=== PATIENT | female | born 1960 | race Caucasian/White ===

== ENCOUNTER 2021-05-11 02:18 | Inpatient (IN) | payer OTHER ==
[~2021-05-11] VITALS: Ht 167.6 cm; Wt 107.0 kg
[2021-05-11] MEDS ORDERED: IPRAT-ALBUT 0.5-3 ML INH (05:43)
[2021-05-11] MEDS ORDERED: AMILORIDE HCL5 MG PO (05:44)
[2021-05-11] MEDS ORDERED: PRAVASTATIN SOD40 MG PO (05:44)
[2021-05-11] MEDS ORDERED: EUTHYROX100 MCG PO (05:45)
[2021-05-11] MEDS ORDERED: ESCITALOPRAM OX20 MG PO (05:46)
[2021-05-11] MEDS ORDERED: MONTELUKAST SOD10 MG PO (05:46)
[2021-05-11] MEDS ORDERED: COQ-1030 MG PO (05:48)
[2021-05-11] MEDS ORDERED: ASPIRIN EC81 MG PO (05:48)
[2021-05-11] MEDS ORDERED: VITAMIN D PO (05:49)
[2021-05-11] MEDS ORDERED: VITAMIN C1000 MG PO (05:49)
[2021-05-11] MEDS ORDERED: OSTEO BI-FLEX1 EAC1 PO (05:50)
[2021-05-11 12:17] LABS: BUN/CREATININE RATIO 26 (0-10)
[2021-05-11 12:18] LABS: HEMOGLOBIN 13.7 gm/dl (12.3-15.3); RED BLOOD COUNT 4.45 M/UL (4.00-5.10); WHITE BLOOD COUNT 16.1 K/UL (4.5-11.0)
[2021-05-13 04:31] LABS: WHITE BLOOD COUNT 15.8 K/UL (4.5-11.0)
[2021-05-13 04:32] LABS: RED BLOOD COUNT 2.96 M/UL (4.00-5.10)
--- NOTE | 2021-05-13 13:34 | NUR ---
MULTIPLE ATTEMPTS MADE TO GAIN AC ACCESS OF #20 OR LARGER BY 3 DIFFERENT PCU NURSES. PT PRESENTLY HAS #[address] CT STAFF AWARE
[2021-05-14 03:21] LABS: HEMOGLOBIN 7.5 gm/dl (12.3-15.3)
[2021-05-14 03:23] LABS: RED BLOOD COUNT 2.46 M/UL (4.00-5.10)
[2021-05-14 11:54] LABS: HEMOGLOBIN 6.7 gm/dl (12.3-15.3)
--- NOTE | 2021-05-14 12:44 | NUR ---
PT HGB OF 6.7 REPORTED TO Geo JOSE
[2021-05-14 18:49] LABS: HEMOGLOBIN 7.5 gm/dl (12.3-15.3); RED BLOOD COUNT 2.42 M/UL (4.00-5.10); WHITE BLOOD COUNT 12.8 K/UL (4.5-11.0)
[2021-05-15 03:03] LABS: HEMOGLOBIN 7.4 gm/dl (12.3-15.3); RED BLOOD COUNT 2.43 M/UL (4.00-5.10); WHITE BLOOD COUNT 10.4 K/UL (4.5-11.0)
[2021-05-15 03:25] LABS: BUN/CREATININE RATIO 37 (0-10)
--- NOTE | 2021-05-15 18:18 | NUR ---
PER MD ANDERS TO DC [employer]. PATIENT STATES SHE WOULD LIKE TO WAIT UNTIL THE MORNING TO TAKE IT OUT
[2021-05-16 03:10] LABS: RED BLOOD COUNT 2.27 M/UL (4.00-5.10); WHITE BLOOD COUNT 8.7 K/UL (4.5-11.0)
[2021-05-16 03:40] LABS: BUN/CREATININE RATIO 25 (0-10)
[2021-05-16] MEDS ORDERED: ROXICODONE TAB 55 MG GT (07:44)
[2021-05-16] MEDS ORDERED: LOVENOX40 MG/0.4 SQ (07:44)
[2021-05-16] MEDS ORDERED: FERROUS GLUCON324 M2 PO (13:37)
[2021-05-16] MEDS ORDERED: PERCOCET 7.5-31 EACH PO (13:37)
[2021-05-16] MEDS ORDERED: LOPRESSOR 25 MG25 MG PO (13:37)
[2021-05-16 16:01] LABS: HEMOGLOBIN 7.1 gm/dl (12.3-15.3)
[2021-05-17 04:09] LABS: RED BLOOD COUNT 2.43 M/UL (4.00-5.10); WHITE BLOOD COUNT 9.5 K/UL (4.5-11.0)
[2021-05-17 04:29] LABS: BUN/CREATININE RATIO 23 (0-10)
== END 2021-05-17 14:50 | DRG 480 ==
LOC: M/S 05:23 → PROG CARE 05:23 → M/S 05:23 → PROG CARE 05-12 20:05
PROVIDERS: Internal Medicine; Internal Medicine Infectious Disease; Orthopaedic Surgery; ADMIT Internal Medicine
PROC: 5A09457 Assistance with Respiratory Ventilation, 24-96 Consecutive Hours, Continuous Positive Airway Pressure (ICD-10-PCS; 2021-05-12)
PROC: 0QSB04Z Reposition Right Lower Femur with Internal Fixation Device, Open Approach (ICD-10-PCS; principal; 2021-05-12 15:12)
PROC: 30233N1 Transfusion of Nonautologous Red Blood Cells into Peripheral Vein, Percutaneous Approach (ICD-10-PCS; 2021-05-14)
DX: S72.451A Displaced supracondylar fracture without intracondylar extension of lower end of right femur, initial encounter for closed fracture (principal); J96.21 Acute and chronic respiratory failure with hypoxia; Z20.822 Contact with and (suspected) exposure to COVID-19; E66.2 Morbid (severe) obesity with alveolar hypoventilation; J98.11 Atelectasis; D62 Acute posthemorrhagic anemia; J44.9 Chronic obstructive pulmonary disease, unspecified; I10 Essential (primary) hypertension; G47.33 Obstructive sleep apnea (adult) (pediatric); E78.5 Hyperlipidemia, unspecified; E03.9 Hypothyroidism, unspecified; F17.210 Nicotine dependence, cigarettes, uncomplicated; M19.90 Unspecified osteoarthritis, unspecified site; W10.8XXA Fall (on) (from) other stairs and steps, initial encounter; F41.9 Anxiety disorder, unspecified; R00.0 Tachycardia, unspecified; Z90.710 Acquired absence of both cervix and uterus; Z82.49 Family history of ischemic heart disease and other diseases of the circulatory system; Z88.6 Allergy status to analgesic agent; Z79.82 Long term (current) use of aspirin; Z79.01 Long term (current) use of anticoagulants; Z68.38 Body mass index [BMI] 38.0-38.9, adult; Z99.81 Dependence on supplemental oxygen
CPT/HCPCS: 36415; 36430; 36600; 71045; 73552; 73700; 80048; 80053; 82803; 83735; 84443; 85014; 85018; 85025; 85027; 85610; 85730; 86850; 86900; 86901; 86920; 93005; 94640; 94660; 94664; 94760; 97110; 97161; 97166; 97530-GP-CQ; C1713; J0592; J0690; J1100; J1170; J1650; J1940; J2001; J2250; J2310; J2370; J2405; J2704; J2710; J2795; J3010; J7120; P9016; P9045; Q9967; U0002